=== PATIENT | male | born 1980 | race Caucasian/White ===

== ENCOUNTER 2020-05-20 08:16 | Outpatient (REF) | payer OTHER, SELFPAY ==
[2020-05-20 12:32] LABS: TSH reflex Free T4 2.04 uIU/mL (0.32-4.0)
[2020-05-20 12:33] LABS: Alanine Aminotransferase 16 U/L (0-40); Albumin Level 4.6 g/dL (3.5-5.0); Alkaline Phosphatase 53 U/L (39-117); Anion Gap 13 (12-20); Aspartate Amino Transferase 28 U/L (5-37); Bilirubin Total 0.9 mg/dL (0.0-1.0); Blood Urea Nitrogen 6 mg/dL (9-16); Calcium 9.3 mg/dL (8.4-10.2); Carbon Dioxide 29 mmol/L (22-29); Chloride 101 mmol/L (96-108); Cholesterol 210 mg/dL; Estimated Glomerular Filt Rate > 60; Glucose Fasting 117 mg/dL (60-99); HDL Cholesterol 113 mg/dL; LDL Cholesterol Calculated 86 mg/dl; Potassium 4.5 mmol/L (3.3-5.1); Sodium 138 mmol/L (135-145); Total Protein 7.6 g/dL (6.5-8.0); Triglycerides 59 mg/dL
== END 2020-05-20 08:17 | disposition home or self-care (01) ==
LOC: HO.HMGCLDS 08:16
PROVIDERS: PCP Nurse Practitioner Family; Visit Provider Nurse Practitioner Family
DX: Z00.00 Encounter for general adult medical examination without abnormal findings (principal)
CPT/HCPCS: 36415; 80053; 80061; 84443

== ENCOUNTER 2021-12-06 08:21 | Outpatient (REF) | payer BC, SELFPAY ==
[2021-12-06 11:13] LABS: MANUAL DIFF FLAG NO
[2021-12-06 11:15] LABS: Basophils Percent Auto 0.4 % (0-2); Eosinophils Absolute Auto 0.2 X10*3/uL (0.0-0.4); Eosinophils Percent Auto 1.8 % (0-4); Hematocrit 40.5 % (42.0-52.0); Imm Gran Abs Auto 0.06 X10*3/uL (0.00-0.03); Imm Gran Pct Auto 0.7 % (0.0-0.4); Lymphocytes Absolute Auto 2.1 X10*3/uL (1.2-4.9); Lymphocytes Percent Auto 24.9 % (20-40); Mean Corpuscular HGB Conc 34.6 g/dl (31.0-36.0); Mean Corpuscular Hemoglobin 34.2 pg (27.0-33.0); Mean Platelet Volume 10.3 fL (9.4-12.4); Monocytes Absolute Auto 0.7 X10*3/uL (0.1-1.2); Monocytes Percent Auto 8.5 % (2-11); Neutrophils Absolute Auto 5.4 x10*3/uL (2.0-8.3); Neutrophils Percent Auto 63.7 % (45-73); Platelet Count 288 X10*3/uL (160-400); Red Blood Count 4.09 X10*6/uL (4.60-5.80); Red Cell Distribution Width 12.1 % (11.0-16.0); White Blood Count 8.5 X10*3/uL (4.8-10.8)
[2021-12-06 11:15] LABS: Appearance Urine Clear; Color Urine Yellow; Glucose Urine UA Negative (Negative); Leukocyte Esterase Urine Negative (Negative); Nitrite Urine Negative (Negative); Urine Blood Negative (Negative); Urine Ketones Negative (Negative); Urine Protein Negative (Neg-Trace)
[2021-12-06 11:42] LABS: Alanine Aminotransferase 13 U/L (0-40); Albumin Level 4.2 g/dL (3.5-5.0); Alkaline Phosphatase 64 U/L (39-117); Anion Gap 13 (12-20); Aspartate Amino Transferase 23 U/L (5-37); Bilirubin Total 0.3 mg/dL (0.0-1.0); Blood Urea Nitrogen 5 mg/dL (9-16); Calcium 9.3 mg/dL (8.4-10.2); Carbon Dioxide 26 mmol/L (22-29); Chloride 102 mmol/L (96-108); Cholesterol 191 mg/dL; Estimated Glomerular Filt Rate > 60; Glucose Fasting 98 mg/dL (60-99); HDL Cholesterol 78 mg/dL; LDL Cholesterol Calculated 94 mg/dl; Potassium 4.8 mmol/L (3.3-5.1); Sodium 136 mmol/L (135-145); Triglycerides 98 mg/dL
[2021-12-06 12:04] LABS: TSH reflex Free T4 1.26 uIU/mL (0.32-4.0)
== END 2021-12-06 08:22 | disposition home or self-care (01) ==
LOC: HO.HMGCLDS 08:21
PROVIDERS: PCP Nurse Practitioner Family; Visit Provider Nurse Practitioner Family
DX: Z00.00 Encounter for general adult medical examination without abnormal findings (principal)
CPT/HCPCS: 36415; 80053; 80061; 81003; 84443; 85025

== ENCOUNTER 2022-11-22 10:49 | Outpatient (AMB) | payer BC, SELFPAY ==
--- NOTE | 2022-11-22 10:53 | A.OFFPC_ITS ---
Vital Signs 11/22/22 10:54 Height 5 ft 6 in Weight 170 lb 6 oz BMI 27.5 BP 128/80 Blood Pressure Location Lt brachial Position Sitting Pulse 90 Pulse Source Pulse Oximeter Pulse Oximetry (%) 95 Oxygen Delivery Method Room Air Intake Visit Reasons: Annual Physical Allergies No Known Allergies [No Known Allergies*] Allergy (Verified 11/22/22 10:56) Medication List - Last Reconciled 11/22/22 by ANUEL McneillCELESTE lisinopril 20 mg PO DAILY 90 days Tobacco use date assessed: 11/22/22 Dental Screening Dental Screen Date: 11/22/22 Did you have a dental visit in the last 12 months?: No Did you have a dental problem in the last 6 months where you did not have access to dental care?: No Was dental information given to patient?: Patient has dentist HPI Annual Physical HPI Details Pt is here for a PE. Will order labs. Pt reports low libido and erectile dysfunction. Will check testosterone. Pt reports intermittent right inguinal pain . Pt knows to go to the ER with any worsening symptoms. PFSH Surgical History S/P correction of deviated nasal septum S/P ACL surgery Family History Father Hypertension Diabetes Substance use disorder Mother Hypertension Diabetes Hypothyroid Brother Substance use disorder Social History Housing: House Alcohol intake: current Alcohol intake frequency: 0-2 drinks per day Alcohol type: beer Patient Tobacco Use Status: Current everyday Tobacco user Cigarettes Per Day: 15 Years Smoked: 21 years e-Cigarette/Vaping Use: Never Used Second Hand Smoke Exposure: No service: No Current occupational status: employed Current occupation: [employer] Current occupational exposures/hazards: Yes Cognitive needs: No Hearing needs: No Vision needs: No Questionnaire Thrive Questionnaire Date Thrive assessed: 11/21/21 MARSHALL-7 AMB Questionnaire MARSHALL-7 Date MARSHALL - 7 assessed: 11/21/21 Source: Developed by Drs. Benjamin Mendoza, Nhi Starr, Ameya Ac and colleagues, with an educational wero from [employer]. Review of Systems Const Denies chills and Denies fever(s) Eyes Denies blurry vision ENT Denies vertigo, Denies dizziness and Denies sore throat Card Denies chest pain at rest, Denies chest pain with activity, Denies diaphoresis, Denies dyspnea and Denies dyspnea on exertion Resp Denies cough, Denies dyspnea, Denies dyspnea on exertion and Denies wheezing GI Reports abdominal pain (intermittent right inguinal), Denies melena, Denies hematochezia, Denies constipation, Denies diarrhea and Denies loose stools Reports change in libido, Denies hematuria and Reports erectile dysfunction Musc Denies numbness and Denies tingling Skin/Breast Denies lesions Neuro Denies vertigo, Denies dizziness, Denies numbness and Denies tingling Psych Denies anxiety, Reports change in libido, Denies depression, Denies homicidal ideation, Denies suicidal ideation and Denies other (substance abuse) Endo Reports change in libido Aller/Immun Denies wheezing Physical exam (Primary Care) Vital Signs: Last Vital Signs Pulse 90 11/22/22 10:54 BP 128/80 11/22/22 10:54 Pulse Ox 95 11/22/22 10:54 Oxygen Delivery Method Room Air 11/22/22 10:54 BMI result Body Mass Index 27.5 Tobacco/Smoking Status: Tobacco use Status Tobacco use date assessed 11/22/22 11/22/22 10:58 Patient Tobacco Use Status Current everyday Tobacco 11/22/22 10:58 e-Cigarette/Vaping Use Never Used 11/22/22 10:58 Thrive Assessment: Date of Thrive Assessment Date Thrive assessed 11/21/21 11/22/22 10:58 Const General: cooperative Nutritional Appearance: well nourished Orientation/consciousness: patient oriented x3 HENMT Head: Yes normal to inspection, Yes normocephalic and Yes atraumatic Ears: TM's normal bilaterally Eyes General: appearance normal, both eyes and all related structures Alignment and Position: alignment normal and position normal Neck Neck: Yes normal visual inspection and Yes no lymphadenopathy Thyroid: Thyroid normal Resp Effort & Inspection: normal respiratory effort Auscultation: clear to auscultation bilaterally Cardio Rate: regular rate Rhythm: regular rhythm Heart sounds: S1 normal heart sound present, S2 normal heart sound present and no murmurs GI Palpation (GI): Soft to palpation and nontender Auscultation: normal bowel sounds Male General Exam: Yes normal external exam Penis: normal penis Scrotum: scrotum normal, testes descended bilaterally and no inguinal hernias Testes: no testicular mass Skin Rashes: no rashes Neuro General: patient oriented x3, moves all extremities, no focal motor deficits and deep tendon reflexes 2+ bilaterally Romberg Test: Negative Psych Appearance: grossly normal Mental Status: mental status grossly normal Speech and movement: Normal speech and movement present Affect: normal affect Attitude: cooperative Thought process: Normal thought process present Thought content: Normal thought content present Insight: Good insight present (Psych) Judgement: Good judgement present (Psych) Assessment and Plan Assessment & Plan (1) Physical exam: Code(s): Z00.00 - Encounter for general adult medical examination without abnormal findings Plan: Labs ordered (2) Low libido: Code(s): R68.82 - Decreased libido (3) Erectile dysfunction: Code(s): N52.9 - Male erectile dysfunction, unspecified Plan The patient agreed to the use of a manager of medical for this encounter. Scribed for CORY Muhammad by Lulú Carter manager of medical, on 11/22/2022 at 11:25 EST. Orders: Orders Complete Blood Count Auto Diff Today Z00.00 - Encounter for general adult medical examination without abnormal findings TSH reflex Free T4 Today Z00.00 - Encounter for general adult medical examination without abnormal findings UA CC w/rflx Micro + Cult Today Z00.00 - Encounter for general adult medical examination without abnormal findings Lipid Panel Today Z00.00 - Encounter for general adult medical examination without abnormal findings Testosterone, Free/Total Today N52.9 - Male erectile dysfunction, unspecified, R68.82 - Decreased libido Comprehensive [place]. Panel Fast Today Z00.00 - Encounter for general adult medical examination without abnormal findings Coding Level of Care Code Est Pt Prev Care 40-64y(00458) Diagnoses Physical exam Z00.00 Low libido R68.82 Erectile dysfunction N52.9
[2022-11-22 10:54] VITALS: BP 128/80; PULSE 90; O2SAT 95; BMI 27.5
== END 2022-11-22 11:34 | disposition home or self-care (01) ==
PROVIDERS: Visit Provider Nurse Practitioner Family
DX: Z00.00 Encounter for general adult medical examination without abnormal findings (principal); R68.82 Decreased libido; N52.9 Male erectile dysfunction, unspecified
CPT/HCPCS: 99396

== ENCOUNTER 2022-11-26 09:30 | Outpatient (REF) | payer BC, SELFPAY ==
[2022-11-26 11:59] LABS: MANUAL DIFF FLAG NO
[2022-11-26 12:10] LABS: Basophils Percent Auto 0.4 % (0-2); Eosinophils Absolute Auto 0.2 X10*3/uL (0.0-0.4); Eosinophils Percent Auto 1.6 % (0-4); Hematocrit 44.2 % (42.0-52.0); Hemoglobin 14.9 g/dl (14.0-18.0); Imm Gran Abs Auto 0.05 X10*3/uL (0.00-0.03); Imm Gran Pct Auto 0.5 % (0.0-0.4); Lymphocytes Percent Auto 18.8 % (20-40); Mean Corpuscular HGB Conc 33.7 g/dl (31.0-36.0); Mean Corpuscular Hemoglobin 33.9 pg (27.0-33.0); Mean Corpuscular Volume 100.5 fL (80.0-98.0); Mean Platelet Volume 10.8 fL (9.4-12.4); Monocytes Absolute Auto 0.9 X10*3/uL (0.1-1.2); Monocytes Percent Auto 8.3 % (2-11); Neutrophils Absolute Auto 7.5 x10*3/uL (2.0-8.3); Neutrophils Percent Auto 70.4 % (45-73); Platelet Count 267 X10*3/uL (160-400); Red Cell Distribution Width 12.3 % (11.0-16.0); White Blood Count 10.7 X10*3/uL (4.8-10.8)
[2022-11-26 13:14] LABS: Appearance Urine Clear; Color Urine Yellow; Glucose Urine UA Negative (Negative); Leukocyte Esterase Urine Negative (Negative); Nitrite Urine Negative (Negative); Specific Gravity - Urine <= 1.005 (1.005-1.025); Urine Blood Negative (Negative); Urine Ketones Negative (Negative); Urine Protein Negative (Neg-Trace)
[2022-11-26 13:29] LABS: Alanine Aminotransferase 18 U/L (0-40); Albumin Level 4.5 g/dL (3.5-5.0); Alkaline Phosphatase 82 U/L (39-117); Anion Gap 19 (12-20); Aspartate Amino Transferase 26 U/L (5-37); Bilirubin Total 0.6 mg/dL (0.0-1.0); Blood Urea Nitrogen 5 mg/dL (9-16); Carbon Dioxide 23 mmol/L (22-29); Chloride 99 mmol/L (96-108); Cholesterol 181 mg/dL (<200); Estimated Glomerular Filt Rate > 60; Glucose Fasting 129 mg/dL (60-99); HDL Cholesterol 79 mg/dL (>40); LDL Cholesterol Calculated 93 mg/dL (<100); Potassium 4.6 mmol/L (3.3-5.1); Sodium 136 mmol/L (135-145); Total Protein 7.9 g/dL (6.5-8.0); Triglycerides 47 mg/dL (<150)
[2022-11-26 13:30] LABS: TSH reflex Free T4 1.43 uIU/mL (0.32-4.0)
[2022-11-30 19:33] LABS: Testosterone, Free 83.4 pg/mL (35.0-155.0); Testosterone, Total 725 ng/dL (250-1100)
== END 2022-11-26 09:31 | disposition home or self-care (01) ==
LOC: HO.HMGCLDS 09:30
PROVIDERS: PCP Nurse Practitioner Family; Visit Provider Nurse Practitioner Family
DX: Z00.00 Encounter for general adult medical examination without abnormal findings (principal); R68.82 Decreased libido; N52.9 Male erectile dysfunction, unspecified; Z13.29 Encounter for screening for other suspected endocrine disorder
CPT/HCPCS: 36415; 80053; 80061; 81003; 84402; 84403; 84443; 85025

== ENCOUNTER 2022-12-21 12:34 | Outpatient (REF) | payer BC, SELFPAY ==
[2022-12-21 14:11] LABS: Estimated Average Glucose 111 mg/dL; Hemoglobin A1c % 5.5 % (<6.0)
== END 2022-12-21 12:35 | disposition home or self-care (01) ==
LOC: HO.HMGCLDS 12:34
PROVIDERS: PCP Nurse Practitioner Family; Visit Provider Nurse Practitioner Family
DX: E11.9 Type 2 diabetes mellitus without complications (principal)
CPT/HCPCS: 36415; 83036

== ENCOUNTER 2023-02-11 12:59 | Outpatient (AMB) | payer BC, SELFPAY ==
--- NOTE | 2023-02-11 13:12 | A.OFFPC_ITS ---
Vital Signs 02/11/23 13:13 02/11/23 14:06 Height 5 ft 6 in Weight 168 lb BMI 27.1 BP 130/80 Blood Pressure Location Rt brachial Position Sitting Pulse 120 H 106 H Pulse Source Pulse Oximeter Pulse Oximetry (%) 98 Oxygen Delivery Method Room Air Intake Visit Reasons: New diabetic Allergies No Known Allergies [No Known Allergies*] Allergy (Verified 02/11/23 13:13) Medication List - Last Reconciled 02/11/23 by DENTON Mcneill atorvastatin 20 mg PO BEDTIME blood sugar diagnostic ([employer] Ultra Test strips) Use to check blood sugars twice daily: fasting and random blood-glucose meter ([employer] Ultra2 Meter) Use to check blood sugars twice daily: fasting and random lancets ([employer] Delica Safety Lancet) Use to check blood sugars twice daily: fasting and random lisinopril 20 mg PO DAILY 90 days Tobacco use date assessed: 11/22/22 HPI New diabetic HPI Details Pt is a newly diagnosed diabetic, on an ALLISON. Last A1C was 5.5. Due for microalbumin, will order. Denies polyuria, polydipsia, and neuropathy. Pt denies any signs and symptoms of hypoglycemia and does know how to correct it. Pt reports that his blood sugar has been well-controlled, few spikes noted. Pt is continuously working on his diet, already met with our NN team. Will start atorvastatin 20mg. Pt is tachycardic today, though pt reports he is nervous. Denies GI bleeding, chest pain, and shortness of breath. [facility] Surgical History S/P correction of deviated nasal septum S/P ACL surgery Family History Father Hypertension Diabetes Substance use disorder Mother Hypertension Diabetes Hypothyroid Brother Substance use disorder Social History Housing: House Alcohol intake: current Alcohol intake frequency: 0-2 drinks per day Alcohol type: beer Patient Tobacco Use Status: Current everyday Tobacco user Cigarettes Per Day: 15 Years Smoked: 21 years e-Cigarette/Vaping Use: Never Used Second Hand Smoke Exposure: No service: No Current occupational status: employed Current occupation: [employer] Current occupational exposures/hazards: Yes Cognitive needs: No Hearing needs: No Vision needs: No Questionnaire Thrive Questionnaire Date Thrive assessed: 11/21/21 MARSHALL-7 AMB Questionnaire MARSHALL-7 Date MARSHALL - 7 assessed: 11/21/21 Source: Developed by Drs. Benjamin Mendoza, Nhi Starr, Ameya Ac and colleagues, with an educational wero from [employer]. Physical exam (Primary Care) Vital Signs: Last Vital Signs Pulse 120 H 02/11/23 13:13 BP 130/80 02/11/23 13:13 Pulse Ox 98 02/11/23 13:13 Oxygen Delivery Method Room Air 02/11/23 13:13 BMI result Body Mass Index 27.1 Tobacco/Smoking Status: Tobacco use Status Tobacco use date assessed 11/22/22 02/11/23 13:13 Patient Tobacco Use Status Current everyday Tobacco 02/11/23 13:13 e-Cigarette/Vaping Use Never Used 02/11/23 13:13 Thrive Assessment: Date of Thrive Assessment Date Thrive assessed 11/21/21 02/11/23 13:13 Const General: cooperative Orientation/consciousness: patient oriented x3 Resp Effort & Inspection: normal respiratory effort Auscultation: clear to auscultation bilaterally Cardio Rate: tachycardic Rhythm: regular rhythm Heart sounds: S1 normal heart sound present and S2 normal heart sound present Neuro General: patient oriented x3 Extrem Other: bilat feet: + sensation with use of monofilament, right foot lateral plantar aspect with small callous Psych Appearance: grossly normal Mental Status: mental status grossly normal Speech and movement: Normal speech and movement present Affect: normal affect Attitude: cooperative Thought process: Normal thought process present Thought content: Normal thought content present Insight: Good insight present (Psych) Judgement: Good judgement present (Psych) Immunizations pneumoc 20-shauna conj-dip cr(PF) 0.5 mL IM syringe Performing Provider: DENTON Mcneill Performing Location[place] [facility] Administered by: WINSTON Spencer on 02/11/23 13:57 Dose Route Admin Location Dispensed Lot Number Expiration Date NDC Applications Development Consultant 0.5 mL IM Right Deltoid 0.5 mL [id number] 11/01/23 WYETH/PFIZER VIS Given Date VIS Provided VIS Publication Date 02/11/23 Single Vaccine 21 Eligibility Eligibility Date Funding Source Not [facility] Eligible 02/11/23 Private Assessment and Plan Assessment & Plan (1) Newly diagnosed diabetes: Code(s): E11.9 - Type 2 diabetes mellitus without complications Plan: working on diet, (2) Tachycardia: Code(s): R00.0 - Tachycardia, unspecified Plan The patient agreed to the use of a adjunct faculty for medical terminology for this encounter. Scribed for ANUEL Muhammad- by Lulú Carter adjunct faculty for medical terminology, on 02/11/2023 at 13:20 EST. Orders: Orders Complete Blood Count Auto Diff Today E11.9 - Type 2 diabetes mellitus without complications Lipid Panel Today E11.9 - Type 2 diabetes mellitus without complications Comprehensive [place]. Panel Fast Today E11.9 - Type 2 diabetes mellitus without complications TSH reflex Free T4 Today E11.9 - Type 2 diabetes mellitus without complications UA CC w/rflx Micro + Cult Today E11.9 - Type 2 diabetes mellitus without complications Microalbumin, Random (w Creat) Today E11.9 - Type 2 diabetes mellitus without complications AMB EKG-In Office Today R00.0 - Tachycardia, unspecified Pneumococcal 20 Immunization Today Z23 - Encounter for immunization Medications: New atorvastatin 20 mg PO BEDTIME 90 tabs 2RF Coding Level of Care Code Est Pt Level 3 (71466) Diagnoses Newly diagnosed diabetes E11.9 Tachycardia R00.0
[2023-02-11 13:13] VITALS: BP 130/80; PULSE 120; O2SAT 98; BMI 27.1
[2023-02-11 14:06] VITALS: PULSE 106
== END 2023-02-11 14:12 | disposition home or self-care (01) ==
PROVIDERS: PCP Nurse Practitioner Family; Visit Provider Nurse Practitioner Family
DX: E11.9 Type 2 diabetes mellitus without complications (principal); R00.0 Tachycardia, unspecified; Z23 Encounter for immunization
CPT/HCPCS: 90471; 90677; 99213

== ENCOUNTER 2023-03-02 09:14 | Outpatient (AMB) | payer BC, SELFPAY ==
--- NOTE | 2023-03-02 11:00 | MHC.OFFWIV ---
Intake Vital Signs 03/02/23 11:04 Height 5 ft 6 in Weight 170 lb BMI 27.4 BP 114/74 Blood Pressure Location Lt brachial Position Sitting Pulse 82 Pulse Source Pulse Oximeter Pulse Oximetry (%) 98 Oxygen Delivery Method Room Air Intake Visit Reasons: EST/rash on both([phone]) Intake Note: Pt is here today c/o Lt foot rash 1 month ago no improvement Patient Tobacco Use Status: Current everyday Tobacco user Allergies No Known Allergies [No Known Allergies*] Allergy (Verified 03/02/23 11:00) Do you need a note to return to daycare/school/sports/work: No HPI HPI Comments History of Present Illness Details This is a 42-year-old male with past medical history of xjo-vbfcxov-ohhkpeytj diabetes, hypertension and hyperlipidemia presenting for evaluation of itchy lesions on the top of his feet that have been present for the past 3 weeks. Patient has been using Neosporin topically without relief of his symptoms. Patient describes the lesions as dry and exceptionally itchy. Patient denies any recent contacts including lotions, detergents, soaps or medications. Patient states they become painful when they are dry but they are primarily itchy in nature. Patient denies having any fevers or chills. [facility] Surgical History S/P correction of deviated nasal septum S/P ACL surgery Family History Father Hypertension Diabetes Substance use disorder Mother Hypertension Diabetes Hypothyroid Brother Substance use disorder Social History Housing: House Alcohol intake: current Alcohol intake frequency: 0-2 drinks per day Alcohol type: beer Patient Tobacco Use Status: Current everyday Tobacco user Cigarettes Per Day: 15 Years Smoked: 21 years e-Cigarette/Vaping Use: Never Used Second Hand Smoke Exposure: No service: No Current occupational status: employed Current occupation: [employer] Current occupational exposures/hazards: Yes Cognitive needs: No Hearing needs: No Vision needs: No Review of Systems Const All systems reviewed & are unremarkable except as noted in HPI and below Musc Reports no additional complaints Skin/Breast Reports dry skin, Reports pruritus, Reports lesions, Reports non-healing lesions, Reports erythema and Reports rash Psych Reports no additional complaints Physical Exam Vital Signs: Last Vital Signs Pulse 82 03/02/23 11:04 BP 114/74 03/02/23 11:04 Pulse Ox 98 03/02/23 11:04 Oxygen Delivery Method Room Air 03/02/23 11:04 BMI result Body Mass Index 27.4 Const General: cooperative, healthy appearing, comfortable, no acute distress and well developed; No ill appearing Nutritional Appearance: average body habitus Orientation/consciousness: patient oriented x3 Limitations: no limitations Skin Lesions: other (Dorsal surface of the feet bilaterally there are erythematous scaly lesions) Rashes: other (No evidence of a secondary cellulitis, no induration, no fluctuance) Neuro General: patient oriented x3 Extrem Other: No pain to direct examination of the metatarsals or digits of the feet bilaterally Psych Appearance: grossly normal Mental Status: mental status grossly normal Insight: Good insight present (Psych) Judgement: Good judgement present (Psych) Assessment & Plan Assessment & Plan (1) Fungal dermatitis: Code(s): B36.9 - Superficial mycosis, unspecified Plan: Patient will use Lotrisone topically BID to these lesions for the next 10-14 days. Medications: New clotrimazole-betamethasone 1-0.05 % 1 appl topical BID 45 grams 0RF Patient Instructions: Lotrisone b.i.d. x 10-14 days. Patient will follow up with his primary care provider in 10-14 days if his symptoms have not improved, sooner for any worsening symptoms Coding Level of Care Code Est Pt Level 3 (08475) Diagnoses Fungal dermatitis B36.9 Time Spent (min) 20
[2023-03-02 11:04] VITALS: BP 114/74; PULSE 82; O2SAT 98; BMI 27.4
== END 2023-03-02 11:57 | disposition home or self-care (01) ==
PROVIDERS: PCP Nurse Practitioner Family; Visit Provider Physician Assistant
DX: B36.9 Superficial mycosis, unspecified (principal)
CPT/HCPCS: 99213

== ENCOUNTER 2023-05-20 09:58 | Outpatient (AMB) | payer BC, SELFPAY ==
[2023-05-20 10:13] VITALS: BP 128/80; PULSE 58; O2SAT 98; BMI 26.0
--- NOTE | 2023-05-20 10:13 | MHC.PC.OV ---
Vital Signs 05/20/23 10:13 Height 5 ft 6 in Weight 161 lb BMI 26.0 BP 128/80 Blood Pressure Location Lt brachial Position Sitting Pulse 58 Pulse Source Pulse Oximeter Pulse Oximetry (%) 98 Intake Visit Reasons: 3 month follow up Intake Note: pt is here for 3 month follow up, patient is concerned about foot infection Plasterer Maintenance Required: No Accompanied by: Self / Same As Patient Allergies No Known Allergies [No Known Allergies*] Allergy (Verified 05/20/23 11:37) Medication List - Last Reconciled 05/20/[facility] blood sugar diagnostic ([employer] Ultra Test strips) Use to check blood sugars twice daily: fasting and random blood-glucose meter ([employer] Ultra2 Meter) Use to check blood sugars twice daily: fasting and random clotrimazole-betamethasone 1-0.05 % 1 appl topical BID lancets ([employer] Delica Safety Lancet) Use to check blood sugars twice daily: fasting and random lisinopril 20 mg PO DAILY 90 days pravastatin 10 mg PO BEDTIME Tobacco use date assessed: 05/20/23 Dental Screening Dental Screen Date: 05/20/23 Did you have a dental visit in the last 12 months?: Yes Did you have a dental problem in the last 6 months where you did not have access to dental care?: No Was dental information given to patient?: Patient has dentist HPI 3 month follow up HPI Details Pt is a diabetic, on an ALLISON. A1C in office today is 5.6. Due for microalbumin, will order. Denies polyuria, polydipsia, and neuropathy. Pt denies any signs and symptoms of hypoglycemia and does know how to correct it. He checks his sugars with use of a glucometer, stable. Eye exam is up to date. Pt could not tolerate statin. Will start ezetimibe 10mg. Pt has an area of excoriation to his left foot 4th toe. Will give pt bacitracin and have him apply a small dressing to the area to be taken off at night. He also reports some fungus which is improving. [facility] Surgical History S/P correction of deviated nasal septum S/P ACL surgery Family History Father Hypertension Diabetes Substance use disorder Mother Hypertension Diabetes Hypothyroid Brother Substance use disorder Social History Housing: House Alcohol intake: current Alcohol intake frequency: 0-2 drinks per day Alcohol type: beer Patient Tobacco Use Status: Current everyday Tobacco user Cigarettes Per Day: 15 Years Smoked: 21 years e-Cigarette/Vaping Use: Never Used Second Hand Smoke Exposure: No service: No Current occupational status: employed Current occupation: [employer] Current occupational exposures/hazards: Yes Cognitive needs: No Hearing needs: No Vision needs: No Questionnaire Thrive Questionnaire Date Thrive assessed: 11/21/21 I am a: Patient What is your living situation today?: I have a steady place to live Within the past 12 months, did the food you bought not last and you didn't have the money to get more?: Never true Within the past 12 months, did you worry whether your food would run out before you got money to buy more?: Never true Please select the resources that you would like help with: None THRIVE Score: 0 AUDIT C Alcohol Use Questionnaire (AUDIT-C) 1. How often do you have a drink containing alcohol?: 4 or more times a week 2. How many drinks containing alcohol do you have on a typical day when you are drinking?: 7 to 9 3. How often do you have six or more drinks on one occasion?: Daily or almost daily Total Score: 11 Score Reviewed/Action Taken: Yes MARSHALL-7 AMB Questionnaire MARSHALL-7 Date MARSHALL - 7 assessed: 11/21/21 Feeling nervous, anxious, or on edge: 0 = Not at all Not being able to stop or control worryin = Not at all Worrying too much about different things: 0 = Not at all Trouble relaxin = Several days Being so restless that it is hard to sit still: 0 = Not at all Becoming easily annoyed or irritable: 1 = Several days Feeling afraid as if something awful might happen: 0 = Not at all Total MARSHALL-7 score (0-4 normal; 5-9 mild; 10-14 moderate; 15-21 severe): 2 Source: Developed by Drs. Benjamin Mendoza, Nhi B.W. Ameya Starr and colleagues, with an educational wero from [employer]. MARSHALL-7 Assessment Billing MARSHALL-7 Assessment Tool: MARSHALL-7 Assessment [id number] Review of Systems Const Reports as per HPI Physical exam (Primary Care) Vital Signs: Last Vital Signs Pulse 58 05/20/23 10:13 BP 128/80 05/20/23 10:13 Pulse Ox 98 05/20/23 10:13 BMI result Body Mass Index 26.0 Tobacco/Smoking Status: Tobacco use Status Tobacco use date assessed 05/20/23 05/20/23 10:16 Patient Tobacco Use Status Current everyday Tobacco 05/20/23 10:16 e-Cigarette/Vaping Use Never Used 05/20/23 10:16 Thrive Assessment: Date of Thrive Assessment Date Thrive assessed 11/21/21 05/20/23 10:16 Const General: cooperative Orientation/consciousness: patient oriented x3 Resp Effort & Inspection: normal respiratory effort Auscultation: clear to auscultation bilaterally Cardio Rate: regular rate Rhythm: regular rhythm Heart sounds: S1 normal heart sound present and S2 normal heart sound present Neuro General: patient oriented x3 Extrem Other: bilat feet: + sensation with use of monofilament, left foot 4th toe medial aspect distal tip with small excoriation, no signs of infection, left dorsal foot with faint erythema with dry patch, otherwise feet intact Results AMB Hemoglobin A1c AMB Hemoglobin A1c 5.6 % Last Edit by Isra Loera CMA on 05/20/23 10:26 Results Reviewed Results Reviewed: Laboratory Last Values Hgb A1c (Clinic) 5.6 % (4.0-6.0) 05/20/23 10:24 Assessment and Plan Assessment & Plan (1) Newly diagnosed diabetes: Code(s): E11.9 - Type 2 diabetes mellitus without complications Plan: A1C done in office (2) Fungal dermatitis: Code(s): B36.9 - Superficial mycosis, unspecified Plan: Improving, continue to use cream (3) Toe abrasion: Code(s): S90.416A - Abrasion, unspecified lesser toe(s), initial encounter Plan: Apply bacitracin and small dressing, take off at night Plan The patient agreed to the use of a medical office technician for this encounter. Scribed for DENTON Muhammad by emigdio Jessica scribe, on 05/20/2023 at 10:40 EST. Orders: Orders AMB Hemoglobin A1c Today Z13.9 - Encounter for screening, unspecified Medications: New ezetimibe 10 mg PO DAILY 90 days 90 tabs 0RF Discontinued pravastatin Discontinued Reason: Patient Refused 10 mg PO BEDTIME 90 tabs 0RF Coding Level of Care Code Est Pt Level 3 (66273) Diagnoses Newly diagnosed diabetes E11.9 Fungal dermatitis B36.9 Toe abrasion S90.416A Additional Codes MARSHALL-7 Assessment Billing - MARSHALL-7 Assessment Tool: MARSHALL-7 Assessment [id number] ([id number])
== END 2023-05-20 14:29 | disposition home or self-care (01) ==
PROVIDERS: PCP Nurse Practitioner Family; Visit Provider Nurse Practitioner Family
DX: E11.9 Type 2 diabetes mellitus without complications (principal); B36.9 Superficial mycosis, unspecified; S91.115A Laceration without foreign body of left lesser toe(s) without damage to nail, initial encounter; E78.5 Hyperlipidemia, unspecified
CPT/HCPCS: 83036; 99213

== ENCOUNTER 2023-07-11 08:02 | Outpatient (AMB) | payer BC, SELFPAY ==
[2023-07-11 08:08] VITALS: BP 122/78; PULSE 90; O2SAT 97
--- NOTE | 2023-07-11 08:08 | MHC.OFFWIV ---
Intake Vital Signs 07/11/23 08:08 Weight 160 lb BP 122/78 Blood Pressure Location Lt brachial Position Sitting Pulse 90 Pulse Source Pulse Oximeter Pulse Oximetry (%) 97 Oxygen Delivery Method Room Air Intake Visit Reasons: EST/right ear pain (lobby) Intake Note: Patient here for right ear pain that has been present for about 1 week, mentioned it feels like its draining. Patient Tobacco Use Status: Current everyday Tobacco user Allergies No Known Allergies [No Known Allergies*] Allergy (Verified 07/11/23 08:09) Do you need a note to return to daycare/school/sports/work: No HPI HPI Comments History of Present Illness Details 42 y/o male patient who presents to walk in clinic with c/o right ear pain and ringing since Sat. Denies fevers, chills, nausea and vomiting. PFSH Surgical History S/P correction of deviated nasal septum S/P ACL surgery Family History Father Hypertension Diabetes Substance use disorder Mother Hypertension Diabetes Hypothyroid Brother Substance use disorder Social History Housing: House Alcohol intake: current Alcohol intake frequency: 0-2 drinks per day Alcohol type: beer Patient Tobacco Use Status: Current everyday Tobacco user Cigarettes Per Day: 15 Years Smoked: 21 years e-Cigarette/Vaping Use: Never Used Second Hand Smoke Exposure: No service: No Current occupational status: employed Current occupation: [employer] Current occupational exposures/hazards: Yes Cognitive needs: No Hearing needs: No Vision needs: No Review of Systems Const All systems reviewed & are unremarkable except as noted in HPI and below Physical Exam Vital Signs: Last Vital Signs Pulse 90 07/11/23 08:08 BP 122/78 07/11/23 08:08 Pulse Ox 97 07/11/23 08:08 Oxygen Delivery Method Room Air 07/11/23 08:08 Const General: comfortable and no acute distress Nutritional Appearance: well nourished Orientation/consciousness: patient oriented x3 HEENT Head: Yes normocephalic Ears: external ears normal and TM abnormal bulging, erythematous and with fluid behind the TM bilateral; not with effusion, not perforated, not retracted and not scarred General nose exam: Abnormal mucous membranes and turbinates present pale Face and sinus: Yes sinuses nontender Mouth: moist mucous membranes Throat: Yes posterior oropharynx normal Neuro General: patient oriented x3 Assessment & Plan Assessment & Plan (1) Fluid level behind tympanic membrane of both ears: Code(s): H65.93 - Unspecified nonsuppurative otitis media, bilateral Plan: - Claritin for 7 days. - Acetaminophen for pain relief. Medications: New loratadine (Claritin Liqui-Gel) 10 mg PO DAILY 20 caps 0RF 7 days H65.93 - Unspecified nonsuppurative otitis media, bilateral Coding Level of Care Code Est Pt Level 3 (55706) Diagnoses Fluid level behind tympanic membrane of both ears H65.93 Time Spent (min) 15
== END 2023-07-11 09:03 | disposition home or self-care (01) ==
PROVIDERS: PCP Nurse Practitioner Family; Visit Provider Nurse Practitioner Family
DX: H65.93 Unspecified nonsuppurative otitis media, bilateral (principal)
CPT/HCPCS: 99213

== ENCOUNTER 2023-12-07 08:25 | Outpatient (REF) | payer BC, SELFPAY ==
[2023-12-07 10:59] LABS: MANUAL DIFF FLAG NO
[2023-12-07 11:20] LABS: Basophils Percent Auto 0.5 % (0-2); Eosinophils Absolute Auto 0.2 X10*3/uL (0.0-0.4); Eosinophils Percent Auto 2.6 % (0-4); Hematocrit 41.2 % (42.0-52.0); Hemoglobin 13.9 g/dl (14.0-18.0); Imm Gran Abs Auto 0.03 X10*3/uL (0.00-0.03); Imm Gran Pct Auto 0.4 % (0.0-0.4); Lymphocytes Absolute Auto 2.3 X10*3/uL (1.2-4.9); Lymphocytes Percent Auto 27.4 % (20-40); Mean Corpuscular HGB Conc 33.7 g/dl (31.0-36.0); Mean Corpuscular Hemoglobin 32.1 pg (27.0-33.0); Mean Corpuscular Volume 95.2 fL (80.0-98.0); Mean Platelet Volume 10.8 fL (9.4-12.4); Monocytes Absolute Auto 0.6 X10*3/uL (0.1-1.2); Monocytes Percent Auto 6.8 % (2-11); Neutrophils Absolute Auto 5.2 x10*3/uL (2.0-8.3); Neutrophils Percent Auto 62.3 % (45-73); Platelet Count 280 X10*3/uL (160-400); Red Blood Count 4.33 X10*6/uL (4.60-5.80); Red Cell Distribution Width 11.9 % (11.0-16.0); White Blood Count 8.4 X10*3/uL (4.8-10.8)
[2023-12-07 11:47] LABS: Appearance Urine Clear; Color Urine Yellow; Glucose Urine UA Negative (Negative); Leukocyte Esterase Urine Negative (Negative); Nitrite Urine Negative (Negative); Specific Gravity - Urine 1.015 (1.005-1.025); Urine Blood Negative (Negative); Urine Ketones Negative (Negative); Urine Protein Negative (Neg-Trace)
[2023-12-07 12:16] LABS: Alanine Aminotransferase 21 U/L (0-40); Albumin Level 4.2 g/dL (3.5-5.0); Alkaline Phosphatase 67 U/L (39-117); Anion Gap 10 (12-20); Aspartate Amino Transferase 23 U/L (5-37); Bilirubin Total 0.5 mg/dL (0.0-1.0); Blood Urea Nitrogen 8 mg/dL (9-16); Calcium 9.6 mg/dL (8.4-10.2); Carbon Dioxide 26 mmol/L (22-29); Chloride 102 mmol/L (96-108); Cholesterol 238 mg/dL (<200); Creatinine Urine 107.01 mg/dL; Estimated Glomerular Filt Rate > 60; Glucose Fasting 119 mg/dL (60-99); HDL Cholesterol 46 mg/dL (>40); LDL Cholesterol Calculated 165 mg/dL (<100); Microalbumin Urine < 5.0 mg/L; Potassium 4.1 mmol/L (3.3-5.1); Sodium 134 mmol/L (135-145); Total Protein 7.5 g/dL (6.5-8.0); Triglycerides 139 mg/dL (<150)
== END 2023-12-07 08:26 | disposition home or self-care (01) ==
LOC: HO.HMGCLDS 08:25
PROVIDERS: PCP Nurse Practitioner Family; Visit Provider Nurse Practitioner Family
DX: E11.9 Type 2 diabetes mellitus without complications (principal)
CPT/HCPCS: 36415; 80053; 80061; 81003; 82043; 82570; 84443; 85025

== ENCOUNTER 2023-12-10 10:50 | Outpatient (AMB) | payer BC, SELFPAY ==
[2023-12-10 10:56] VITALS: BP 122/74; PULSE 82; O2SAT 96; BMI 26.6
--- NOTE | 2023-12-10 10:56 | A.OFFPC_ITS ---
Vital Signs 12/10/23 10:56 Height 5 ft 6 in Weight 165 lb BMI 26.6 BP 122/74 Blood Pressure Location Lt brachial Position Sitting Pulse 82 Pulse Source Pulse Oximeter Pulse Oximetry (%) 96 Intake Visit Reasons: Annual Physical Intake Note: Pt is here today for his PE Allergies No Known Allergies [No Known Allergies*] Allergy (Verified 12/10/23 11:31) Medication List - Last Reconciled 12/10/23 by DENTON Mcneill blood sugar diagnostic (octoScopeTouch Ultra Test strips) Use to check blood sugars twice daily: fasting and random blood-glucose meter (Baccaratuch Ultra2 Meter) Use to check blood sugars twice daily: fasting and random ezetimibe 10 mg PO DAILY lancets (octoScopetouch Delica Safety Lancet) Use to check blood sugars twice daily: fasting and random lisinopril 20 mg PO DAILY 90 days Tobacco use date assessed: 12/10/23 Dental Screening Dental Screen Date: 12/10/23 HPI Annual Physical HPI Details Here for a PE. Labs already performed. slight anemia noted, repeating with further labs in approx 2 months. Dyslipidemia: cannot tolerate statins, according to pt, zetia (generic) was not covered by insurance in the past, will resend today. diabetes: educated pt on watching his diet. Pt denies any polyuria, polydipsia, or neuropathy. A1c was 5.8 today. Eye exam is up to date. Right knee pain: ongoing for months now. Reports clicking with pain, pointing to his anterior right knee. He denies any erythema or swelling. He describes intermittent locking as well. [facility] Surgical History S/P correction of deviated nasal septum S/P ACL surgery Family History Father Hypertension Diabetes Substance use disorder Mother Hypertension Diabetes Hypothyroid Brother Substance use disorder Social History Housing: House Alcohol intake: current Alcohol intake frequency: 0-2 drinks per day Alcohol type: beer Patient Tobacco Use Status: Current everyday Tobacco user Cigarettes Per Day: 15 Years Smoked: 21 years e-Cigarette/Vaping Use: Never Used Second Hand Smoke Exposure: No service: No Current occupational status: employed Current occupation: [employer] Current occupational exposures/hazards: Yes Cognitive needs: No Hearing needs: No Vision needs: No Questionnaire PHQ-9 Over the last 2 weeks, how often have you been bothered by any of the following problems? 1. Little interest or pleasure in doing things: not at all 2. Feeling down, depressed, or hopeless: not at all 3. Trouble falling or staying asleep, or sleeping too much: not at all 4. Feeling tired or having little energy: not at all 5. Poor appetite or overeating: not at all 6. Feeling bad about yourself - or that you are a failure or have let yourself or your family down: not at all 7. Trouble concentrating on things, such as reading the newspaper or watching television: not at all 8. Moving or speaking so slowly that other people could have noticed. Or the opposite - being so fidgety or restless that you have been moving around a lot more than usual: not at all 9. Thoughts that you would be better off or of hurting yourself in some way: not at all Total score: 0 Depression Screening Interpretation: Negative Depression Screening Done: Yes 92183 - PHQ-9 Billing: Yes Source: Developed by Drs. Benjamin Mendoza, Nhi Starr, Ameya Ac and colleagues, with an educational wero from [employer]. Thrive Questionnaire Date Thrive assessed: 12/10/23 I am a: Patient What is your living situation today?: I have a steady place to live Within the past 12 months, did the food you bought not last and you didn't have the money to get more?: Sometimes True Within the past 12 months, did you worry whether your food would run out before you got money to buy more?: Sometimes True Do you have trouble paying for medicines?: No Do you have trouble getting transportation to medical appointments?: No Do you have trouble paying your heating and electricity bill?: No Do you have trouble taking care of your child, family member or friend?: No Do you have trouble with day-to-day activities such as bathing, preparing meals, shopping, managing finances, etc.?: No Are you interested in more education?: No Please select the resources that you would like help with: None Currently or been in a relationship where the following occur: No concerns reported THRIVE Score: 2 AUDIT C Alcohol Use Questionnaire (AUDIT-C) 1. How often do you have a drink containing alcohol?: 2-4 times a month 2. How many drinks containing alcohol do you have on a typical day when you are drinking?: 3 or 4 3. How often do you have six or more drinks on one occasion?: Less than monthly Total Score: 4 MARSHALL-7 AMB Questionnaire MARSHALL-7 Date MARSHALL - 7 assessed: 12/10/23 Feeling nervous, anxious, or on edge: 0 = Not at all Not being able to stop or control worryin = Not at all Worrying too much about different things: 0 = Not at all Trouble relaxin = Not at all Being so restless that it is hard to sit still: 0 = Not at all Becoming easily annoyed or irritable: 1 = Several days Feeling afraid as if something awful might happen: 0 = Not at all Total MARSHALL-7 score (0-4 normal; 5-9 mild; 10-14 moderate; 15-21 severe): 1 Source: Developed by Drs. Benjamin Mendoza, Nhi Starr, Ameya Ac and colleagues, with an educational wero from [employer]. MARSHALL-7 Assessment Billing MARSHALL-7 Assessment Tool: MARSHALL-7 Assessment 81869 Review of Systems Const Denies chills and Denies fever(s) Eyes Denies blurry vision ENT Denies vertigo, Denies dizziness and Denies sore throat Card Denies chest pain at rest, Denies chest pain with activity, Denies diaphoresis, Denies dyspnea and Denies dyspnea on exertion Resp Denies cough, Denies dyspnea, Denies dyspnea on exertion and Denies wheezing GI Denies abdominal pain, Denies melena, Denies hematochezia, Denies constipation, Denies diarrhea and Denies loose stools Denies hematuria Musc Denies numbness and Denies tingling Skin/Breast Denies lesions Neuro Denies vertigo, Denies dizziness, Denies numbness and Denies tingling Psych Denies anxiety, Denies depression, Denies homicidal ideation, Denies suicidal ideation and Denies other (substance abuse) Aller/Immun Denies wheezing Physical exam (Primary Care) Vital Signs: Last Vital Signs Pulse 82 12/10/23 10:56 BP 122/74 12/10/23 10:56 Pulse Ox 96 12/10/23 10:56 BMI result Body Mass Index 26.6 Tobacco/Smoking Status: Tobacco use Status Tobacco use date assessed 12/10/23 12/10/23 10:57 Patient Tobacco Use Status Current everyday Tobacco 12/10/23 10:57 e-Cigarette/Vaping Use Never Used 12/10/23 10:57 PHQ-9: PHQ-9 Score PHQ-9: Total score 0 12/10/23 11:13 Depression Screening Interpretation: Negative Thrive Assessment: Date of Thrive Assessment Date Thrive assessed 12/10/23 12/10/23 10:57 Currently or been in a relationship where the following occur: No concerns reported Const General: cooperative Nutritional Appearance: well nourished Orientation/consciousness: patient oriented x3 HENMT Head: Yes normal to inspection, Yes normocephalic and Yes atraumatic Ears: TM normal on the right and TM normal on the left Eyes General: appearance normal, both eyes and all related structures Alignment and Position: alignment normal and position normal Neck Neck: Yes normal visual inspection, Yes no lymphadenopathy and Yes supple Resp Effort & Inspection: normal respiratory effort Auscultation: clear to auscultation bilaterally Cardio Rate: regular rate Rhythm: regular rhythm Heart sounds: S1 normal heart sound present, S2 normal heart sound present and no murmurs GI Palpation (GI): Soft to palpation and nontender Auscultation: normal bowel sounds Male General Exam: Yes normal external exam Penis: normal penis Scrotum: scrotum normal, testes descended bilaterally and no inguinal hernias Testes: no testicular mass Skin Rashes: no rashes Neuro General: patient oriented x3, moves all extremities, no focal motor deficits and deep tendon reflexes 2+ bilaterally Romberg Test: Negative Extrem Other: right knee: neg lachmans, neg mccmurrays, no pain with extension and flexion. crepitus noted with extension and flexion. Feet intact, + sensation with use of monofilament. Right lower extremity: no edema Left lower extremity: no edema Psych Affect: normal affect Attitude: cooperative Thought process: Normal thought process present Results AMB Hemoglobin A1c AMB Hemoglobin A1c 5.8 % Last Edit by Taylor Echavarria CMA on 12/10/23 11:14 Results Reviewed Results Reviewed: Laboratory Last Values Hgb A1c (Clinic) 5.8 % (4.0-6.0) 12/10/23 10:57 Coding Level of Care Code Est Pt Level 3 (73757) Est Pt Prev Care 40-64y(02276) Diagnoses Anemia D64.9 Right knee pain M25.561 Diabetes E11.9 Encounter for routine adult physical exam with abnormal findings Z00.01 Dyslipidemia E78.5 Additional Codes MARSHALL-7 Assessment Billing - MARSHALL-7 Assessment Tool: MARSHALL-7 Assessment 48240 ([id number]) Assessment & Plan Assessment & Plan (1) Anemia: Code(s): D64.9 - Anemia, unspecified Category: Medical Plan: rechecking with further labs (2) Right knee pain: Code(s): M25.561 - Pain in right knee Category: Medical Plan: xr ordered (3) Diabetes: Code(s): E11.9 - Type 2 diabetes mellitus without complications Category: Medical Plan: labs ordered (4) Encounter for routine adult physical exam with abnormal findings: Code(s): Z00.01 - Encounter for general adult medical examination with abnormal findings Category: Medical Plan: labs (5) Dyslipidemia: Code(s): E78.5 - Hyperlipidemia, unspecified Category: Medical Plan: ezetimibe sent, recheck lipids in 2 months Orders: Orders AMB Hemoglobin A1c Today R73.01 - Impaired fasting glucose XR knee RT 2V Today M25.561 - Pain in right knee Microalbumin, Random (w Creat) Today E11.9 - Type 2 diabetes mellitus without complications Medications: New ezetimibe 10 mg PO DAILY 90 tabs 0RF
== END 2023-12-10 11:58 | disposition home or self-care (01) ==
PROVIDERS: PCP Nurse Practitioner Family; Visit Provider Nurse Practitioner Family
DX: Z00.00 Encounter for general adult medical examination without abnormal findings (principal); E11.69 Type 2 diabetes mellitus with other specified complication; D64.9 Anemia, unspecified; M25.561 Pain in right knee; E78.5 Hyperlipidemia, unspecified

== ENCOUNTER → 2023-12-10 10:50 | Outpatient (BNVA) | payer BC, SELFPAY | PROVIDERS: PCP Nurse Practitioner Family; Visit Provider Nurse Practitioner Family | DX: Z00.01 Encounter for general adult medical examination with abnormal findings (principal); D64.9 Anemia, unspecified; M25.561 Pain in right knee; E11.9 Type 2 diabetes mellitus without complications; E78.5 Hyperlipidemia, unspecified | CPT/HCPCS: 83036; 96127 ==

== ENCOUNTER 2023-12-16 16:02 | Outpatient (REF) | payer BC, SELFPAY | END 2023-12-16 16:03 | disposition home or self-care (01) | LOC: HO.HMGCX 16:02 | PROVIDERS: PCP Nurse Practitioner Family; Visit Provider Nurse Practitioner Family | DX: M25.561 Pain in right knee (principal) | CPT/HCPCS: 73560 ==

== ENCOUNTER 2024-03-21 09:22 | Outpatient (REF) | payer OTHER, SELFPAY ==
[2024-03-21 12:11] LABS: MANUAL DIFF FLAG NO
[2024-03-21 12:17] LABS: Basophils Percent Auto 0.5 % (0-2); Eosinophils Absolute Auto 0.2 X10*3/uL (0.0-0.4); Eosinophils Percent Auto 2.4 % (0-4); Hematocrit 40.8 % (42.0-52.0); Hemoglobin 14.1 g/dl (14.0-18.0); Imm Gran Abs Auto 0.02 X10*3/uL (0.00-0.03); Imm Gran Pct Auto 0.3 % (0.0-0.4); Immature Retic Fraction 6.9 % (2.3-13.4); Lymphocytes Percent Auto 27.4 % (20-40); Mean Corpuscular HGB Conc 34.6 g/dl (31.0-36.0); Mean Corpuscular Hemoglobin 33.5 pg (27.0-33.0); Mean Corpuscular Volume 96.9 fL (80.0-98.0); Mean Platelet Volume 10.2 fL (9.4-12.4); Monocytes Absolute Auto 0.5 X10*3/uL (0.1-1.2); Monocytes Percent Auto 7.1 % (2-11); Neutrophils Absolute Auto 4.6 x10*3/uL (2.0-8.3); Neutrophils Percent Auto 62.3 % (45-73); Platelet Count 242 X10*3/uL (160-400); Red Blood Count 4.21 X10*6/uL (4.60-5.80); Red Cell Distribution Width 13.1 % (11.0-16.0); Retic HGB Equivalent 37.5 pg (30.0-35.0); Reticulocyte Percent 1.1 % (0.5-1.8); Reticulocytes Absolute 0.046 X10*6/uL (0.026-0.095); White Blood Count 7.5 X10*3/uL (4.8-10.8)
[2024-03-21 12:50] LABS: Alanine Aminotransferase 24 U/L (0-40); Albumin Level 4.3 g/dL (3.5-5.0); Alkaline Phosphatase 51 U/L (39-117); Anion Gap 11 (12-20); Aspartate Amino Transferase 33 U/L (5-37); Bilirubin Total 0.2 mg/dL (0.0-1.0); Blood Urea Nitrogen 5 mg/dL (9-16); Calcium 8.8 mg/dL (8.4-10.2); Carbon Dioxide 27 mmol/L (22-29); Chloride 101 mmol/L (96-108); Cholesterol 164 mg/dL (<200); Estimated Glomerular Filt Rate > 60; Glucose Fasting 106 mg/dL (60-99); HDL Cholesterol 63 mg/dL (>40); Iron 53 mcg/dL (45-160); LDL Cholesterol Calculated 84 mg/dL (<100); Percent Iron Saturation 27 % (15-50); Potassium 4.5 mmol/L (3.3-5.1); Sodium 134 mmol/L (135-145); Total Iron Binding Capacity 200 mcg/dL (228-428); Total Protein 7.6 g/dL (6.5-8.0); Triglycerides 88 mg/dL (<150); Unsaturated Iron Binding 147 ug/dL
[2024-03-21 13:02] LABS: Folate 9.1 ng/mL (> or = 4.0); Vitamin B12 443 pg/mL (200-900)
[2024-03-21 13:05] LABS: Ferritin 169 ng/mL (20-250)
[2024-03-24 14:28] LABS: Hemoglobin 14.5 g/dL (13.2-17.1); MCV 100.9 fL (80.0-100.0); RBC 4.26 Million/uL (4.20-5.80); RDW 13.1 % (11.0-15.0)
== END 2024-03-21 09:23 | disposition home or self-care (01) ==
LOC: HO.HMGCLDS 09:22
PROVIDERS: PCP Nurse Practitioner Family; Visit Provider Nurse Practitioner Family
DX: D64.9 Anemia, unspecified (principal); E78.5 Hyperlipidemia, unspecified
CPT/HCPCS: 36415; 80053; 80061; 82607; 82728; 82746; 83020; 83540; 85014; 85018; 85025; 85041; 85045

== ENCOUNTER 2024-04-03 08:03 | Outpatient (AMB) | payer OTHER, SELFPAY ==
[2024-04-03 08:12] VITALS: BP 120/80; PULSE 68; TEMP 36.6; O2SAT 97; BMI 26.6
--- NOTE | 2024-04-03 08:12 | MHC.OFFWIV ---
Intake Vital Signs 04/03/24 08:12 Height 5 ft 6 in Weight 165 lb BMI 26.6 BP 120/80 Blood Pressure Location Lt brachial Position Sitting Pulse 68 Pulse Source Pulse Oximeter Temp 97.8 F Temp Source Oral Pulse Oximetry (%) 97 Intake Visit Reasons: EP-sore throat, lt side ear pain Intake Note: pt is here for sore throat, left side ear pain for about a week Patient Tobacco Use Status: Current everyday Tobacco user Allergies No Known Allergies [No Known Allergies*] Allergy (Verified 04/03/24 08:12) Do you need a note to return to daycare/school/sports/work: No HPI HPI Comments History of Present Illness Details This is a 43-year-old male who presented to the walk-in clinic complaining of a sore throat and left ear pain x1 week. He states that his whole family is sick at home with a sore throat. He denies any fever/chills. He reports odynophagia but denies dysphagia. He denies any nasal congestion, rhinorrhea, or cough. [facility] Surgical History S/P correction of deviated nasal septum S/P ACL surgery Family History Father Hypertension Diabetes Substance use disorder Mother Hypertension Diabetes Hypothyroid Brother Substance use disorder Social History Housing: House Alcohol intake: current Alcohol intake frequency: 0-2 drinks per day Alcohol type: beer Patient Tobacco Use Status: Current everyday Tobacco user Cigarettes Per Day: 15 Years Smoked: 21 years e-Cigarette/Vaping Use: Never Used Second Hand Smoke Exposure: No service: No Current occupational status: employed Current occupation: [employer] Current occupational exposures/hazards: Yes Cognitive needs: No Hearing needs: No Vision needs: No Review of Systems Const All systems reviewed & are unremarkable except as noted in HPI and below Reports no additional complaints Eyes Reports no additional complaints ENT Reports no additional complaints Card Reports no additional complaints Resp Reports no additional complaints GI Reports no additional complaints Reports no additional complaints Musc Reports no additional complaints Skin/Breast Reports system reviewed and no additional complaints, except as documented Neuro Reports no additional complaints Psych Reports no additional complaints Endo Reports no additional complaints Colby/Lymph Reports no additional complaints Aller/Immun Reports no additional complaints Physical Exam Vital Signs: Last Vital Signs Temp 97.8 F 04/03/24 08:12 Pulse 68 04/03/24 08:12 BP 120/80 04/03/24 08:12 Pulse Ox 97 04/03/24 08:12 BMI result Body Mass Index 26.6 Const Other: Vital signs reviewed. Constitutional: Non-toxic appearing. No acute distress. Well-developed and well-nourished. HEENT: Normocephalic and atraumatic. Tympanic membranes without erythema, edema, or bulging bilaterally. External auditory canals without erythema or edema bilaterally. Moist mucous membranes. + posterior pharyngeal erythema and mild tonsillar hypertrophy bilaterally without evidence of peritonsillar abscess or pharyngeal exudates. Skin: Warm and dry. No rashes or lesions noted. Neck: Full and painless range of motion. No cervical lymphadenopathy. Cardio: Regular rate. Pulmonary: No respiratory distress. No accessory muscle usage. Musculoskeletal: Normal range of motion in joints throughout the body. No deformity or other signs of injury. Neuro: Alert and oriented x4. Cranial nerves 2-12 grossly intact. No focal deficits appreciated. Psych: Normal mood and affect. Results AMB Rapid Strep AMB Rapid Strep Negative Last Edit by Isra Loera CMA on 04/03/24 08:26 Results Reviewed Results Reviewed: Laboratory Last Values Strep Scn Rapid Clinic Negative 04/03/24 08:26 Assessment & Plan Assessment & Plan (1) Acute viral pharyngitis: Code(s): J02.9 - Acute pharyngitis, unspecified Plan: This is a 43-year-old male presenting to the office complaining of a sore throat and left ear pain. On physical examination, patient has posterior pharyngeal erythema and mild tonsillar edema bilaterally without exudates. Rapid strep test is negative. No evidence of peritonsillar mass/abscess, peritonsillar cellulitis, or, unilateral neck swelling. History and physical most consistent with acute pharyngitis, likely viral. Patient's vital signs are stable, physical exam is otherwise benign, and patient is overall nontoxic appearing. Recommended symptomatic management including rest, increased fluids, advil/tylenol for pain/fever, salt water gargles, and over the counter throat lozenges. Patient advised to follow up here or go to the emergency room for worsening/persistent symptoms including dysphagia, throat swelling, difficulty breathing, or fever/chills. Patient verbalizes understanding and is in agreement the plan. Orders: Orders AMB Rapid Strep Screen Today Z13.9 - Encounter for screening, unspecified Coding Level of Care Code Est Pt Level 3 (03340) Diagnoses Acute viral pharyngitis J02.9
== END 2024-04-03 08:38 | disposition home or self-care (01) ==
PROVIDERS: PCP Nurse Practitioner Family; Visit Provider Physician Assistant Medical
DX: Z13.9 Encounter for screening, unspecified (principal); J02.9 Acute pharyngitis, unspecified

== ENCOUNTER → 2024-04-03 08:03 | Outpatient (BNVA) | payer OTHER, SELFPAY | PROVIDERS: PCP Nurse Practitioner Family | DX: J02.9 Acute pharyngitis, unspecified (principal) | CPT/HCPCS: 87880 ==

== ENCOUNTER 2024-08-17 08:09 | Outpatient (AMB) | payer OTHER, SELFPAY ==
[2024-08-17 08:16] VITALS: BP 128/94; PULSE 90; TEMP 36.8; O2SAT 97; BMI 25.5
--- NOTE | 2024-08-17 08:16 | MHC.OFFWIV ---
Intake Vital Signs 08/17/24 08:16 Height 5 ft 6 in Weight 158 lb 4 oz BMI 25.5 BP 128/94 H Blood Pressure Location Lt brachial Position Sitting Pulse 90 Pulse Source Pulse Oximeter Temp 98.2 F Temp Source Oral Pulse Oximetry (%) 97 Oxygen Delivery Method Room Air Intake Visit Reasons: EP-both side ribs pain & lt jaw pain Patient Tobacco Use Status: Current everyday Tobacco user Allergies No Known Allergies [No Known Allergies*] Allergy (Verified 08/17/24 08:21) HPI HPI Comments History of Present Illness Details 43 y/o Male patient who presents to the walk in clinic with c/o B/L Chest wall pain and TTP. He has been experiencing pain on/off for 2 weeks but in the past few days pain has been getting worse. Reports pain with Breathing in/out and has mild cough. He is a chronic cigarette smoker and smokes everyday. Denies fevers, SOB, nausea or vomiting. Reports 2 days ago he reached over railing of a Above ground Pool to clean it and thinks may the railing injured his ribs. [facility] Medical History (Updated 08/17/24 @ 08:46 by Lory Navarrete NP) Chest wall pain Surgical History S/P correction of deviated nasal septum S/P ACL surgery Family History Father Hypertension Diabetes Substance use disorder Mother Hypertension Diabetes Hypothyroid Brother Substance use disorder Social History Housing: House Alcohol intake: current Alcohol intake frequency: 0-2 drinks per day Alcohol type: beer Patient Tobacco Use Status: Current everyday Tobacco user Cigarettes Per Day: 15 Years Smoked: 21 years e-Cigarette/Vaping Use: Never Used Second Hand Smoke Exposure: No service: No Current occupational status: employed Current occupation: [employer] Current occupational exposures/hazards: Yes Cognitive needs: No Hearing needs: No Vision needs: No Review of Systems Const All systems reviewed & are unremarkable except as noted in HPI and below Physical Exam Vital Signs: Last Vital Signs Temp 98.2 F 08/17/24 08:16 Pulse 90 08/17/24 08:16 BP 128/94 H 08/17/24 08:16 Pulse Ox 97 08/17/24 08:16 Oxygen Delivery Method Room Air 08/17/24 08:16 BMI result Body Mass Index 25.5 Const General: no acute distress; No comfortable Nutritional Appearance: well nourished Orientation/consciousness: patient oriented x3 HEENT Head: Yes normocephalic Ears: external ears normal and TM abnormal bulging and with fluid behind the TM bilateral General nose exam: Abnormal mucous membranes and turbinates present erythematous Face and sinus: Yes sinuses nontender Mouth: moist mucous membranes and Abnormal oral and palatal mucosa present erythematous Throat: Yes uvula midline Chest Chest palpation & inspection: localized rib tenderness with anteroposterior compression and tenderness rib (B/L chest wall tenderness) and pectoral muscle Resp Effort & Inspection: normal respiratory effort and able to speak in complete sentences Auscultation: no crackles, no rales, no rhonchi and wheezes scattered wheezes (Mild) Cardio Heart sounds: S1 normal heart sound present and S2 normal heart sound present Neuro General: patient oriented x3, gait normal and moves all extremities Psych Speech and movement: Normal speech and movement present Assessment & Plan Assessment & Plan (1) Chest wall pain: Code(s): R07.89 - Other chest pain Plan: Ordered Chest Xray to r/o rib Fx or Pneumonia. NSAIDs or Acetaminophen for pain relief Orders: Orders XR ribs BI min 4V w CXR1V Today R07.89 - Other chest pain Coding Level of Care Code Est Pt Level 4 (10917) Diagnoses Chest wall pain R07.89 Time Spent (min) 20
== END 2024-08-17 09:03 | disposition home or self-care (01) ==
PROVIDERS: PCP Nurse Practitioner Family; Visit Provider Nurse Practitioner Family
DX: R07.89 Other chest pain (principal)

== ENCOUNTER 2024-08-17 08:09 | Outpatient (REF) | payer OTHER, SELFPAY ==
--- NOTE | ~2024-08-17 | XR_ITS ---
EXAMINATION: XR RIBS, BILATERAL CLINICAL INFORMATION: R07.89 - Other chest pain COMPARISON: December 29, 2017. TECHNIQUE: 3 views of the bilateral ribs were obtained. FINDINGS: No consolidation, pleural effusion or pneumothorax. Cardiomediastinal silhouette size is normal. Osseous structures are intact. Metallic piercings both sides of the nipple area. No lytic or blastic lesions. XR/XR ribs BI min 4V w CXR1V IMPRESSION: No acute airspace disease. No acute rib fracture. Stable chest. Electronically signed by: Tomas Caldwell MD 08/17/2024 10:26 AM EDT
== END 2024-08-17 08:10 | disposition home or self-care (01) ==
LOC: HO.HMGCX 08:09
PROVIDERS: PCP Nurse Practitioner Family; Visit Provider Nurse Practitioner Family
DX: R07.89 Other chest pain (principal)
CPT/HCPCS: 71111

== ENCOUNTER → 2024-08-17 08:56 | Outpatient (BNV) | payer OTHER, SELFPAY | PROVIDERS: PCP Nurse Practitioner Family; Visit Provider Radiology Diagnostic Radiology | DX: R07.89 Other chest pain (principal) | CPT/HCPCS: 71111 ==

== ENCOUNTER 2025-01-11 10:59 | Outpatient (AMB) | payer OTHER, SELFPAY ==
[2025-01-11 11:13] VITALS: BP 134/82; PULSE 68; RESP 16; O2SAT 99; BMI 27.0
--- NOTE | 2025-01-11 11:13 | A.OFFPC_ITS ---
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 Accompanied by: Self / Same As Patient Allergies No Known Allergies (No Known Allergies*) Allergy (Verified 01/11/25 11:43) Medication List - Last Reconciled 01/11/25 by CORY Mcneill blood sugar diagnostic (bop.fmTouch Ultra Test strips) Use to check blood sugars twice daily: fasting and random blood-glucose meter (bop.fmTouch Ultra2 Meter) Use to check blood sugars twice daily: fasting and random lancets ([employer] [employer] Safety Lancet) Use to check blood sugars twice daily: fasting and random lisinopril 20 mg PO DAILY Tobacco use date assessed: 01/11/25 Dental Screening Dental Screen Date: 01/11/25 Did you have a dental visit in the last 12 months?: Yes Did you have a dental problem in the last 6 months where you did not have access to dental care?: No Was dental information given to patient?: Patient has dentist HPI Annual Physical HPI Details History of Present Illness The patient is a 44-year-old male presenting for a physical exam. The patient has a history of diabetes, with a recent A1c of 5.8. He denies any symptoms of neuropathy. For health maintenance, he receives an eye exam every May and is up to date on his vaccinations. Health Maintenance The patient presents for a routine physical exam. He is up to date on his vaccinations and receives an annual eye exam. Will obtain fasting labs in the near future. Social History Review of Systems - Constitutional: Reports feeling well o verall. - Cardiovascular: Denies chest pain. - Respiratory: Denies shortness of breat h. - Gastrointestinal: Denies abdominal sole n, blood in stool, constipation, or diarrhea. - Neurological: Denies neuropathies. - Psychiatric: Denies suicidal or homici graeme ideation. Physical Exam General: Cooperative, healthy appearing, comfortable, no acute distress and well developed Orientation: Patient oriented x3 Limitations: No limitations Head: Normal to inspection Ears: Hearing grossly normal bilaterally Nose: Normal external nose present Face and sinus: Normal facial exam Eyes: Appearance normal, both eyes and all related structures Neck: Normal visual inspection and Yes full ROM Respiratory: Normal respiratory effort and able to speak in complete sentences. Clear to auscultation bilaterally Cardiovascular: Regular rate and rhythm. Normal S1 and S2 GI: Normal to inspection. Soft to palpation and nontender : testicles without masses/lesions and no hernias appreciated Skin: No rashes or lesions noted Neuro: Patient oriented x3. Positive sensation with the use of monofilament to feet Extremities: Normal to inspection Results - Labs: A1c was 5.8. Plan 1. Diabetes Mellitus The patient's diabetes is well-controlled with a recent A1c of 5.8. He denies neuropathies, and his foot exam was benign with intact sensation to monofilament testing. Will obtain fasting labs in the near future for ongoing monitoring. 2. PE Discussion Notes I reviewed with the patient that his overall exam was benign. We discussed that his diabetes is well-controlled, as shown by his recent A1c of 5.8, and his foot exam was reassuring. I also confirmed he is current on his vaccinations and annual eye exams. I have instructed him to get fasting labs in the near future for continued monitoring. Patient Instructions - Please get fasting lab work done in e near future. - Continue with your annual eye exams, w ith the next one scheduled for May. [facility] Medical History Chest wall pain Surgical History S/P correction of deviated nasal septum S/P ACL surgery Family History Father Hypertension Diabetes Substance use disorder Mother Hypertension Diabetes Hypothyroid Brother Substance use disorder Social History Housing: House Alcohol intake: current Alcohol intake frequency: 0-2 drinks per day Alcohol type: beer Patient Tobacco Use Status: Current everyday Tobacco user Cigarettes Per Day: 15 Years Smoked: 21 years e-Cigarette/Vaping Use: Never Used Second Hand Smoke Exposure: No service: No Current occupational status: employed Current occupation: [employer] Current occupational exposures/hazards: Yes Cognitive needs: No Hearing needs: No Vision needs: No Questionnaire PHQ-9 Over the last 2 weeks, how often have you been bothered by any of the following problems? 1. Little interest or pleasure in doing things: not at all 2. Feeling down, depressed, or hopeless: not at all 3. Trouble falling or staying asleep, or sleeping too much: several days 4. Feeling tired or having little energy: not at all 5. Poor appetite or overeating: not at all 6. Feeling bad about yourself - or that you are a failure or have let yourself or your family down: not at all 7. Trouble concentrating on things, such as reading the newspaper or watching television: not at all 8. Moving or speaking so slowly that other people could have noticed. Or the opposite - being so fidgety or restless that you have been moving around a lot more than usual: not at all 9. Thoughts that you would be better off or of hurting yourself in some way: not at all Total score: 1 Depression Screening Interpretation: Negative Depression Screening Done: Yes 58950 - PHQ-9 Billing: Yes Source: Developed by Drs. Benjamin Mendoza, Nhi Starr, Ameya Ac and colleagues, with an educational wero from [employer]. Thrive Questionnaire Date Thrive assessed: 01/04/25 I am a: Patient What is your living situation today?: I have a steady place to live Within the past 12 months, did the food you bought not last and you didn't have the money to get more?: Never true Within the past 12 months, did you worry whether your food would run out before you got money to buy more?: Never true Do you have trouble paying for medicines?: No Do you have trouble getting transportation to medical appointments?: No Do you have trouble paying your heating and electricity bill?: No Do you have trouble taking care of your child, family member or friend?: No Do you have trouble with day-to-day activities such as bathing, preparing meals, shopping, managing finances, etc.?: No Are you currently unemployed and looking for a job?: No Are you interested in more education?: No Please select the resources that you would like help with: None Currently or been in a relationship where the following occur: No concerns reported THRIVE Score: 0 AUDIT C Alcohol Use Questionnaire (AUDIT-C) 1. How often do you have a drink containing alcohol?: 4 or more times a week 2. How many drinks containing alcohol do you have on a typical day when you are drinking?: 7 to 9 3. How often do you have six or more drinks on one occasion?: Daily or almost daily Total Score: 11 Score Reviewed/Action Taken: Yes MARSHALL-7 AMB Questionnaire MARSHALL-7 Date MARSHALL - 7 assessed: 01/11/25 Feeling nervous, anxious, or on edge: 0 = Not at all Not being able to stop or control worryin = Not at all Worrying too much about different things: 0 = Not at all Trouble relaxin = Several days Being so restless that it is hard to sit still: 0 = Not at all Becoming easily annoyed or irritable: 1 = Several days Feeling afraid as if something awful might happen: 0 = Not at all Total MARSHALL-7 score (0-4 normal; 5-9 mild; 10-14 moderate; 15-21 severe): 2 Source: Developed by Drs. Benjamin Mendoza, Nhi Starr, Ameya Ac and colleagues, with an educational wero from [employer]. MARSHALL-7 Assessment Billing MARSHALL-7 Assessment Tool: MARSHALL-7 Assessment 63198 Physical exam (Primary Care) Vital Signs: Last Vital Signs Pulse 68 01/11/25 11:13 Resp 16 01/11/25 11:13 BP 134/82 01/11/25 11:13 Pulse Ox 99 01/11/25 11:13 Oxygen Delivery Method Room Air 01/11/25 11:13 BMI result Body Mass Index 27.0 Tobacco/Smoking Status: Tobacco use Status Tobacco use date assessed 01/11/25 01/11/25 11:15 Patient Tobacco Use Status Current everyday Tobacco 01/11/25 11:15 e-Cigarette/Vaping Use Never Used 01/11/25 11:15 PHQ-9: PHQ-9 Score PHQ-9: Total score 1 01/11/25 11:40 Depression Screening Interpretation: Negative Thrive Assessment: Date of Thrive Assessment Date Thrive assessed 01/04/25 01/11/25 11:15 Currently or been in a relationship where the following occur: No concerns reported Results AMB Hemoglobin A1c AMB Hemoglobin A1c 5.8 % Last Edit by Livia Peck MA on 01/11/25 11:25 Results Reviewed Results Reviewed: Laboratory Last Values Hgb A1c (Clinic) 5.8 % (4.0-6.0) 01/11/25 11:20 Coding Level of Care Code Est Pt Level 3 (46994) Est Pt Prev Care 40-64y(99674) Diagnoses Diabetes E11.9 Encounter for routine adult physical exam with abnormal findings Z00. Additional Codes PHQ-9 - 47790 - PHQ-9 Billing: Yes ([id number]) MARSHALL-7 Assessment Billing - MARSHALL-7 Assessment Tool: MARSHALL-7 Assessment 72612 ([id number]) Assessment & Plan Assessment & Plan (1) Diabetes: Code(s): E11.9 - Type 2 diabetes mellitus without complications Category: Medical (2) Encounter for routine adult physical exam with abnormal findings: Code(s): Z00.01 - Encounter for general adult medical examination with abnormal findings Category: Medical Plan . Orders: Orders Complete Blood Count Auto Diff Today E11.9 - Type 2 diabetes mellitus without complications, Z00.01 - Encounter for general adult medical examination with abnormal findings UA CC w/rflx Micro + Cult Today E11.9 - Type 2 diabetes mellitus without compl ications, Z00.01 - Encounter for general adult medical examination with abnormal findings Lipid Panel Today E11.9 - Type 2 diabetes mellitus without complications, Z00.01 - Encounter for general adult medical examination with abnormal findings Microalbumin, Random (w Creat) Today E11.9 - Type 2 diabetes mellitus without complications AMB Hemoglobin A1c Today E11.9 - Type 2 diabetes mellitus without complications Comprehensive [place]. Panel Fast Today E11.9 - Type 2 diabetes mellitus without complications, Z00.01 - Encounter for general adult medical examination with abnormal findings TSH reflex Free T4 Today E11.9 - Type 2 diabetes mellitus without complicati ons, Z00.01 - Encounter for general adult medical examination with abnormal findings
--- NOTE | 2025-01-11 11:30 | MHC.PC.OV ---
Vital Signs 01/11/25 11:13 Height 5 ft 6 in Weight 167 lb BMI 27.0 BP 134/82 Blood Pressure Location Lt brachial Position Sitting Respiration 16 Pulse 68 Pulse Source Pulse Oximeter Pulse Oximetry (%) 99 Oxygen Delivery Method Room Air Intake Visit Reasons: Annual Physical Allergies No Known Allergies (No Known Allergies*) Allergy (Verified 01/11/25 11:18) Tobacco use date assessed: 01/11/25 Dental Screening Dental Screen Date: 01/11/25 Did you have a dental visit in the last 12 months?: Yes Did you have a dental problem in the last 6 months where you did not have access to dental care?: No Was dental information given to patient?: Patient has dentist [facility] Medical History Chest wall pain Surgical History S/P correction of deviated nasal septum S/P ACL surgery Family History Father Hypertension Diabetes Substance use disorder Mother Hypertension Diabetes Hypothyroid Brother Substance use disorder Social History Housing: House Alcohol intake: current Alcohol intake frequency: 0-2 drinks per day Alcohol type: beer Patient Tobacco Use Status: Current everyday Tobacco user Cigarettes Per Day: 15 Years Smoked: 21 years Packs per year/per ci.00 e-Cigarette/Vaping Use: Never Used Second Hand Smoke Exposure: No service: No Current occupational status: employed Current occupation: [employer] Current occupational exposures/hazards: Yes Cognitive needs: No Hearing needs: No Vision needs: No Questionnaire PHQ-9 Over the last 2 weeks, how often have you been bothered by any of the following problems? 1. Little interest or pleasure in doing things: not at all 2. Feeling down, depressed, or hopeless: not at all 3. Trouble falling or staying asleep, or sleeping too much: several days 4. Feeling tired or having little energy: not at all 5. Poor appetite or overeating: not at all 6. Feeling bad about yourself - or that you are a failure or have let yourself or your family down: not at all 7. Trouble concentrating on things, such as reading the newspaper or watching television: not at all 8. Moving or speaking so slowly that other people could have noticed. Or the opposite - being so fidgety or restless that you have been moving around a lot more than usual: not at all 9. Thoughts that you would be better off or of hurting yourself in some way: not at all Total score: 1 Depression Screening Interpretation: Negative Depression Screening Done: Yes 20136 - PHQ-9 Billing: Yes Source: Developed by Drs. Benjamin Mendoza, Nhi Starr, Ameya Ac and colleagues, with an educational wero from [employer]. Thrive Questionnaire Date Thrive assessed: 01/04/25 I am a: Patient What is your living situation today?: I have a steady place to live Within the past 12 months, did the food you bought not last and you didn't have the money to get more?: Never true Within the past 12 months, did you worry whether your food would run out before you got money to buy more?: Never true Do you have trouble paying for medicines?: No Do you have trouble getting transportation to medical appointments?: No Do you have trouble paying your heating and electricity bill?: No Do you have trouble taking care of your child, family member or friend?: No Do you have trouble with day-to-day activities such as bathing, preparing meals, shopping, managing finances, etc.?: No Are you currently unemployed and looking for a job?: No Are you interested in more education?: No Please select the resources that you would like help with: None Currently or been in a relationship where the following occur: No concerns reported THRIVE Score: 0 AUDIT C Alcohol Use Questionnaire (AUDIT-C) 1. How often do you have a drink containing alcohol?: 4 or more times a week 2. How many drinks containing alcohol do you have on a typical day when you are drinking?: 7 to 9 3. How often do you have six or more drinks on one occasion?: Daily or almost daily Total Score: 11 Score Reviewed/Action Taken: Yes MARSHALL-7 AMB Questionnaire MARSHALL-7 Date MARSHALL - 7 assessed: 01/11/25 Feeling nervous, anxious, or on edge: 0 = Not at all Not being able to stop or control worryin = Not at all Worrying too much about different things: 0 = Not at all Trouble relaxin = Several days Being so restless that it is hard to sit still: 0 = Not at all Becoming easily annoyed or irritable: 1 = Several days Feeling afraid as if something awful might happen: 0 = Not at all Total MARSHALL-7 score (0-4 normal; 5-9 mild; 10-14 moderate; 15-21 severe): 2 Source: Developed by Drs. Benjamin Mendoza, Nhi Starr, Ameya Ac and colleagues, with an educational wero from [employer]. MARSHALL-7 Assessment Billing MARSHALL-7 Assessment Tool: MARSHALL-7 Assessment 09028 Physical exam (Primary Care) Vital Signs: Last Vital Signs Pulse 68 01/11/25 11:13 Resp 16 01/11/25 11:13 BP 134/82 01/11/25 11:13 Pulse Ox 99 01/11/25 11:13 Oxygen Delivery Method Room Air 01/11/25 11:13 BMI result Body Mass Index 27.0 Tobacco/Smoking Status: Tobacco use Status Tobacco use date assessed 01/11/25 01/11/25 11:35 Patient Tobacco Use Status Current everyday Tobacco 01/11/25 11:35 e-Cigarette/Vaping Use Never Used 01/11/25 11:35 PHQ-9: PHQ-9 Score PHQ-9: Total score 1 01/11/25 11:35 Depression Screening Interpretation: Negative Thrive Assessment: Date of Thrive Assessment Date Thrive assessed 01/04/25 01/11/25 11:35 Currently or been in a relationship where the following occur: No concerns reported Results AMB Hemoglobin A1c AMB Hemoglobin A1c 5.8 % Last Edit by Livia Peck MA on 01/11/25 11:25 Results Reviewed Results Reviewed: Laboratory Last Values Hgb A1c (Clinic) 5.8 % (4.0-6.0) 01/11/25 11:20 Coding Level of Care Code Est Pt Level 3 (56525) Est Pt Prev Care 40-64y(63419) Diagnoses Diabetes E11.9 Encounter for routine adult physical exam with abnormal findings Z00.01 Additional Codes MARSHALL-7 Assessment Billing - MARSHALL-7 Assessment Tool: MARSHALL-7 Assessment 99027 ([id number]) PHQ-9 - 05210 - PHQ-9 Billing: Yes ([id number]) Assessment & Plan Assessment & Plan (1) Diabetes: Code(s): E11.9 - Type 2 diabetes mellitus without complications Category: Medical (2) Encounter for routine adult physical exam with abnormal findings: Code(s): Z00.01 - Encounter for general adult medical examination with abnormal findings Category: Medical Orders: Orders Complete Blood Count Auto Diff Today E11.9 - Type 2 diabetes mellitus without complications, Z00.01 - Encounter for general adult medical examination with abnormal findings UA CC w/rflx Micro + Cult Today E11.9 - Type 2 diabetes mellitus without complications, Z00.01 - Encounter for general adult medical examination with abnormal findings Lipid Panel Today E11.9 - Type 2 diabetes mellitus without complications, Z00.01 - Encounter for general adult medical examination with abnormal findings AMB Hemoglobin A1c Today E11.9 - Type 2 diabetes mellitus without complications Comprehensive [place]. Panel Fast Today E11.9 - Type 2 diabetes mellitus without complications, Z00.01 - Encounter for general adult medical examination with abnormal findings TSH reflex Free T4 Today E11.9 - Type 2 diabetes mellitus without complications, Z00.01 - Encounter for general adult medical examination with abnormal findings
== END 2025-01-11 11:42 | disposition home or self-care (01) ==
LOC: HO.HMCC 10:59
PROVIDERS: PCP Nurse Practitioner Family; Visit Provider Nurse Practitioner Family
DX: Z00.01 Encounter for general adult medical examination with abnormal findings (principal); E11.9 Type 2 diabetes mellitus without complications

== ENCOUNTER → 2025-01-11 10:59 | Outpatient (BNVA) | payer SELFPAY | PROVIDERS: PCP Nurse Practitioner Family; Visit Provider Nurse Practitioner Family | DX: Z00.01 Encounter for general adult medical examination with abnormal findings (principal); E11.9 Type 2 diabetes mellitus without complications | CPT/HCPCS: 83036; 96127; 99212 ==

== ENCOUNTER 2025-01-26 07:35 | Outpatient (REF) | payer OTHER, SELFPAY ==
[2025-01-26 10:21] LABS: MANUAL DIFF FLAG NO
[2025-01-26 10:21] LABS: Appearance Urine Clear; Glucose Urine UA Negative (Negative); PH 6.5 (5.0-9.0); Specific Gravity - Urine 1.015 (1.005-1.025)
[2025-01-26 10:25] LABS: Hematocrit 45.8 % (42.0-52.0); Hemoglobin 15.5 g/dl (14.0-18.0); Imm Gran Abs Auto 0.05 X10*3/uL (0.00-0.03); Imm Gran Pct Auto 0.5 % (0.0-0.4); Lymphocytes Absolute Auto 2.0 X10*3/uL (1.2-4.9); Mean Corpuscular HGB Conc 33.8 g/dl (31.0-36.0); Mean Corpuscular Hemoglobin 33.8 pg (27.0-33.0); Mean Corpuscular Volume 99.8 fL (80.0-98.0); NRBC Abs Auto 0.000 X10*3/uL (0.0-0.012); NRBC Pct Auto 0.0 /100WBC (0.0-0.2); Platelet Count 315 X10*3/uL (160-400); Red Blood Count 4.59 X10*6/uL (4.60-5.80); White Blood Count 9.7 X10*3/uL (4.8-10.8)
[2025-01-26 10:57] LABS: Microalbum/Creatinine Ratio Ur 4.2 ug/mg cr (<30)
[2025-01-26 11:00] LABS: Alanine Aminotransferase 27 U/L (0-40); Albumin Level 4.5 g/dL (3.5-5.0); Alkaline Phosphatase 86 U/L (39-117); Anion Gap 10 (12-20); Aspartate Amino Transferase 32 U/L (5-37); Blood Urea Nitrogen 7 mg/dL (9-16); Calcium 9.7 mg/dL (8.4-10.2); Carbon Dioxide 28 mmol/L (22-29); Chloride 103 mmol/L (96-108); Cholesterol 224 mg/dL (<200); Estimated Glomerular Filt Rate > 60; HDL Cholesterol 48 mg/dL (>40); Potassium 4.8 mmol/L (3.3-5.1); Sodium 136 mmol/L (135-145); Total Protein 7.6 g/dL (6.5-8.0); Triglycerides 133 mg/dL (<150)
== END 2025-01-26 07:36 | disposition home or self-care (01) ==
LOC: HO.HMGCLDS 07:35
PROVIDERS: PCP Nurse Practitioner Family; Visit Provider Nurse Practitioner Family
DX: Z00.00 Encounter for general adult medical examination without abnormal findings (principal); E11.9 Type 2 diabetes mellitus without complications
CPT/HCPCS: 36415; 80053; 80061; 81003; 82043; 82570; 84443; 85025